=== PATIENT | female | born 1980 | race African-American/Black ===

== ENCOUNTER 2018-04-02 10:32 | Emergency (ER) | payer MEDICARE, MEDICAID ==
[~2018-04-02] VITALS: Ht 157.5 cm; Wt 76.0 kg
[~2018-04-02 10:32] MED LIST: [UNRECOGNIZED DRUG - REMARK]
[2018-04-02] MEDS ORDERED: ACETAMINOPHEN WITH CODEINE 300/30MG TABLET PO STA (11:05)
[2018-04-02 11:37] LABS: BASOPHILS % 1.1 % (0.0-2.0); EOSINOPHILS % 1.7 % (0.0-5.0); HEMATOCRIT. 40.2 % (36.0-48.0); HEMOGLOBIN. 13.9 g/dL (12.0-16.0); MEAN CORPUSCULAR VOLUME 89.9 fL (81.0-99.0); MEAN PLATELET VOLUME 8.7 fl (7.4-10.4); MONOCYTES % 9.6 % (2.0-8.0); NEUTROPHILS % 51.6 % (40.0-76.0); PLATELET 264 x1000/uL (130-400); RED BLOOD CELL COUNT 4.47 mill/uL (4.2-5.4); RED CELL DISTRIBUTION WIDTH 15.4 % (11.6-14.6)
[2018-04-02 11:44] LABS: CHLORIDE 105 mEq/L (98-107)
[2018-04-02 11:46] LABS: PROTHROMBIN TIME 10.8 sec (9.4-11.6)
[2018-04-02] MEDS ORDERED: ACETAMINOPHEN WITH CODEINE 300/30MG TABLET PO ONE (13:15)
[2018-04-02 13:24] VITALS: BP 117/62
== END 2018-04-02 13:40 | disposition home or self-care (01) ==
LOC: ER 10:54
DX: R10.11 Right upper quadrant pain (principal); Z88.0 Allergy status to penicillin; F17.210 Nicotine dependence, cigarettes, uncomplicated
CPT/HCPCS: 36415; 76705; 80053; 81025; 83690; 85025; 85610; 99285

== ENCOUNTER 2019-04-08 14:37 | Emergency (ER) | payer MEDICARE, MEDICAID ==
[~2019-04-08] VITALS: Ht 157.5 cm; Wt 71.3 kg
[2019-04-08 17:23] LABS: BASOPHILS % 0.9 % (0.0-2.0); EOSINOPHILS % 2.1 % (0.0-5.0); HEMATOCRIT. 40.4 % (36.0-48.0); HEMOGLOBIN. 13.9 g/dL (12.0-16.0); LYMPHOCYTES % 40.2 % (20.0-50.0); MEAN CORPUSCULAR HEMOGLOBIN 30.5 pg (28.0-32.0); MEAN CORPUSCULAR VOLUME 88.9 fL (81.0-99.0); MEAN PLATELET VOLUME 8.6 fl (7.4-10.4); MONOCYTES % 10.6 % (2.0-8.0); NEUTROPHILS % 46.2 % (40.0-76.0); PLATELET 315 x1000/uL (130-400); RED BLOOD CELL COUNT 4.55 mill/uL (4.2-5.4); RED CELL DISTRIBUTION WIDTH 14.5 % (11.6-14.6)
[2019-04-08 17:28] LABS: CLARITY URINE CLEAR (CLEAR); COLOR URINE YELLOW (YELLOW); KETONES URINE NEGATIVE (NEGATIVE); LEUKOCYTE ESTERASE URINE NEGATIVE (NEGATIVE); NITRITE URINE NEGATIVE (NEGATIVE); OCCULT BLOOD URINE TRACE (NEGATIVE); PH URINE 6.5 (4.5-8.0); PROTEIN URINE NEGATIVE (NEGATIVE); SPECIFIC GRAVITY URINE 1.014 (1.005-1.030)
[2019-04-08 17:28] LABS: CHLORIDE 104 mEq/L (98-107)
[2019-04-08 17:37] LABS: T4 FREE 0.21 ng/dL (0.76-1.46)
[2019-04-08] MEDS ORDERED: LEVOTHYROXINE SODIUM 200MCG TABLET PO ONE (18:15)
[2019-04-08] MEDS ORDERED: KETOROLAC 30MG/ML VIAL IV ONE (20:30)
[2019-04-08 21:47] VITALS: BP 120/70
== END 2019-04-08 21:53 | disposition short-term general hospital (02) ==
LOC: ER 14:37 → CANBEDREQ 22:07
DX: E03.9 Hypothyroidism, unspecified (principal); I10 Essential (primary) hypertension; F17.200 Nicotine dependence, unspecified, uncomplicated; Z90.710 Acquired absence of both cervix and uterus; Z90.89 Acquired absence of other organs; Z98.890 Other specified postprocedural states; Z88.0 Allergy status to penicillin
CPT/HCPCS: 36415; 71045; 80053; 81003; 81025; 83880; 84439; 84443; 84480; 84484; 85025; 93005; 96374; 99285; J1885